=== PATIENT | female | born 1985 | race Caucasian/White ===

== ENCOUNTER 2025-05-21 21:44 | Emergency (ER) | payer MEDICAID, OTHER ==
[~2025-05-21] VITALS: Ht 167.6 cm; Wt 56.8 kg
[~2025-05-21 21:44] MED LIST: ESCI-8 PO; PRAZ1 PO; QUET100T PO; QUET200T PO
[2025-05-21 22:01] VITALS: BP 115/76; PULSE 87; RESP 16; TEMP 97.9; O2SAT 99
[2025-05-21 23:00] LABS: COVID AG,FIA SOURCE NASAL SWAB
[2025-05-21 23:17] LABS: SARS-COV2 (COVID) ANTIGEN,FIA Negative (Negative)
[2025-05-21 23:25] LABS: PLATELET COUNT (AUTO) 362 K/uL (150-450); RED BLOOD CELL COUNT(AUTO) 4.14 MIL/uL (4.00-5.20); RED CELL DISTRIBUTION WIDTH 14.8 % (11.5-14.5); WHITE BLOOD COUNT (AUTO) 5.9 K/uL (4.5-11.0)
[2025-05-21 23:30] LABS: CALCIUM, TOTAL 8.8 mg/dL (8.8-10.5); CREATININE 0.62 mg/dL (0.60-1.30); GLOMERULAR FILTR. RATE CALC > 60 mL/min (>60); GLUCOSE,RANDOM 95 mg/dL (70-110); SODIUM SERUM 141 mmol/L (136-145); UREA NITROGEN, BLOOD 12 mg/dL (7-18)
[2025-05-22] MEDS: LORazepam 2 MG/ML VIAL IM ONE (00:22)
[2025-05-22] MEDS ORDERED: PANT-31 PO (20:36)
[2025-05-22] MEDS ORDERED: LETR2.5 PO (20:36)
[2025-05-22] MEDS ORDERED: DULO20CA57 PO (20:36)
== END 2025-05-22 01:43 | disposition home or self-care (01) ==
LOC: EMS 21:47
DX: F20.9 Schizophrenia, unspecified (principal); F41.9 Anxiety disorder, unspecified; Z79.899 Other long term (current) drug therapy; Z20.822 Contact with and (suspected) exposure to COVID-19
CPT/HCPCS: 99284; 87426; 80048; 85025; 36415; 96372; G0480; J1200; J1630; J2060